=== PATIENT | male | born 1955 | race Caucasian/White ===

== ENCOUNTER → 2016-08-01 | Outpatient (CLI) | payer MEDICARE ==
--- NOTE | 2016-08-02 08:00 | XR ---
EXAMINATION TYPE: XR chest 2V DATE OF EXAM: 08/01/2016 1:40 PM COMPARISON: Chest x-ray January 12, 2009. HISTORY: Cough for 2 weeks. TECHNIQUE: Frontal and lateral views of the chest are obtained. FINDINGS: There is some hazy increased opacity left lower lung silhouetting portions of left heart b order worrisome for lingular atelectasis and/or infiltrate. Right lung is clear. No pleural effusion or pneumothorax is seen bilaterally. The cardiac silhouette size is within normal limits. The osseo us structures are intact. IMPRESSION: Possible developing lingular infiltrate and/or atelectasis.
== END | disposition home or self-care (01) ==
LOC: RADXRYALE 13:04
PROVIDERS: ATTEND Internal Medicine
DX: R05 Cough (principal)
CPT/HCPCS: 71020

== ENCOUNTER → 2018-05-29 | Outpatient (CLI) | payer MEDICARE ==
--- NOTE | 2018-05-29 15:26 | US ---
EXAMINATION TYPE: US venous doppler duplex LE BI DATE OF EXAM: 05/29/2018 3:06 PM COMPARISON: NONE CLINICAL HISTORY: R60.9 Edema. Prior left leg DVT years ago and placed on blood thinner since then; [facility] patient for left lateral malleolus ulcer that patient states is healing; HT5'6; WT 3 18lbs; bilateral ankle edema and dry skin. SIDE PERFORMED: Bilateral TECHNIQUE: The lower extremity deep venous system is examined utilizing real time linear array sonog tani with graded compression, doppler sonography and color-flow sonography. VESSELS IMAGED: Common Femoral Vein Deep Femoral Vein Greater Saphenous Vein * Femoral Vein Popliteal Vein Small Saphenous Vein * Proximal Calf Veins (* superficial vessels) Right Leg: Negative for DVT. Right groin lymph node = 3.9 x 2.3 x 1.3cm. Left Leg: Negative for DVT. Left Popliteal Fossa cyst seen = 7.7 x 2.7 x 3.4cm. Left groin lymph no kris seen with largest = 4.7 x 1.9 x 1.2cm. IMPRESSION: No evidence for DVT at this time.
== END | disposition home or self-care (01) ==
LOC: RADUSWWP 13:33
PROVIDERS: ATTEND Thoracic Surgery (Cardiothoracic Vascular Surgery)
DX: I87.2 Venous insufficiency (chronic) (peripheral) (principal); R60.9 Edema, unspecified
CPT/HCPCS: 93922; 93970

== ENCOUNTER → 2018-09-02 | Outpatient (CLI) | payer MEDICARE ==
--- NOTE | 2018-09-02 15:31 | CT ---
EXAMINATION TYPE: CT abdomen pelvis w con DATE OF EXAM: 09/02/2018 COMPARISON: None HISTORY: Generalized abdominal pain and nausea. CT DLP: 4168 mGycm CONTRAST: CT scan of the abdomen and pelvis is performed with Oral Contrast and with IV Contrast, patient injec jory with 100ml mL of Isovue 300. Streak artifact limits evaluation of portions of the right hemiabdom en. FINDINGS: LUNG BASES-: No visible nodule. No infiltrate. LIVER/GB: No calcified gallstones. There is evidence of hepatomegaly. No space occupying hepatic l esion. Biliary tree is of normal caliber. PANCREAS: No inflammation. No distinct mass. SPLEEN: Mild splenomegaly craniocaudal measurement 13.1 cm. No lesion seen. ADRENALS: Left adrenal nodule. No thickening. KIDNEYS/BLADDER: No hydronephrosis. No nephrolithiasis. No distinct renal mass. Urinary bladder g rossly unremarkable. BOWEL: Normal appendix. Normal bowel caliber. No inflammation. GENITAL ORGANS: No gross abnormality. LYMPH NODES: No greater than 1cm abdominal or pelvic lymph nodes are appreciated. AORTA: No significant abnormality. OSSEOUS STRUCTURES: No significant abnormality is seen. OTHER: No significant additional abnormality is seen. IMPRESSION: 1. Limited examination as noted. 2. Hepatosplenomegaly. 3. No acute inflammatory process appreciated.
== END | disposition home or self-care (01) ==
LOC: RADCTMAIN 12:30
PROVIDERS: ATTEND Internal Medicine
DX: R16.2 Hepatomegaly with splenomegaly, not elsewhere classified (principal)
CPT/HCPCS: 74177; Q9967

== ENCOUNTER → 2022-04-14 | Outpatient (CLI) | payer MEDICARE ==
--- NOTE | 2022-04-15 22:38 | US ---
EXAMINATION TYPE: US kidneys/renal and bladder DATE OF EXAM: 04/14/2022 COMPARISON: CT 2019 CLINICAL HISTORY: N13.30 bilateral hydronephrosis. Bilateral hydro EXAM MEASUREMENTS: Right Kidney: 12.2 x 6.0 x 6.0 cm Left Kidney: 12.8 x 6.6 x 6.6 cm Post Void Residual Volume: 1533 mL Right Kidney: Moderate hydro Left Kidney: Moderate hydro Bladder: [place] distended Bilateral Jets seen: No Normal Post Void Residual: No Incidental finding gallstones There is no evidence for hydronephrosis at this point in time. No nephrolithiasis is seen. No bridger s are identified. The urinary bladder is adequately distended. Bilateral ureteral jets are not seen . After voiding significant amount of residual urine remains present. IMPRESSION: New moderate to severe right greater than left hydronephrosis. Abnormal postvoid residual noted. Clinical correlation and follow-up advised.
== END | disposition home or self-care (01) ==
LOC: RADUSWWP 15:48
PROVIDERS: ATTEND Urology
DX: N13.30 Unspecified hydronephrosis (principal)
CPT/HCPCS: 76770

== ENCOUNTER 2024-10-16 16:44 | Emergency (ER) | payer MEDICARE ==
[2024-10-16 16:56] VITALS: RESP 20; TEMP 97.8
--- NOTE | 2024-10-16 17:26 | ED ---
Extremity Problem HPI - General Source: patient, EMS Mode of arrival: EMS Limitations: no limitations - History of Present Illness MD Complaint: extremity pain, extremity swelling <Dominga Talley - Last Filed: 10/16/24 21:20> <Juan F Khanna - Last Filed: 10/17/24 15:24> - General Chief complaint: Extremity Problem,Nontraumatic Stated complaint: leg infection Time Seen by Provider: 10/16/24 16:52 - History of Present Illness Initial comments: 69-year-old male with past medical history significant for diabetes, chronic venous stasis presenting to the ER with swelling and pain in the right knee. Patient reports he has had a complete knee reconstruction with hardware. Patient denies any fevers, chills, abdominal pain, chest pain, shortness of breath, urinary or bowel complaints. (Dominga Talley) - Related Data Home Medications Medication Instructions Recorded Confirmed Apixaban [Eliquis] 5 mg PO DAILY 05/21/18 09/03/18 Atorvastatin [Lipitor] 20 mg PO DAILY 05/21/18 09/03/18 Furosemide [Lasix] 40 mg PO DAILY 05/21/18 09/03/18 LORazepam [Ativan] 0.5 mg PO HS 05/21/18 09/03/18 Metoprolol Tartrate 25 mg PO DAILY 05/21/18 09/03/18 Potassium Chloride [Klor-Con 10] 10 meq PO DAILY 05/21/18 09/03/18 lisinopriL [Zestril] 5 mg PO QAM 05/21/18 09/03/18 metFORMIN HCL [Glucophage] 500 mg PO DAILY 05/21/18 09/03/18 Previous Rx's Medication Instructions Recorded Amoxic-Pot Clav 500-125 mg 1 tab PO Q12HR 10 Days #20 tab 10/16/24 [Augmentin 500-125 mg] Allergies Allergy/AdvReac Type Severity Reaction Status Date / Time No Known Allergies Allergy Verified 09/03/18 10:53 Review of Systems ROS Other: All systems not noted in ROS Statement are negative. Constitutional: Denies: fever, chills Respiratory: Denies: cough, dyspnea Cardiovascular: Denies: chest pain, palpitations Endocrine: Denies: fatigue Gastrointestinal: Denies: abdominal pain, nausea, vomiting Genitourinary: Denies: urgency, dysuria Musculoskeletal: Denies: back pain Neurological: Denies: headache, weakness <Dominga Talley - Last Filed: 10/16/24 21:20> ROS Other: All systems not noted in ROS Statement are negative. <Juan F Khanna - Last Filed: 10/17/24 15:24> ROS Statement: Those systems with pertinent positive or pertinent negative responses have been documented in the HPI. Past Medical History Past Medical History: Atrial Fibrillation, Heart Failure, Diabetes Mellitus, Hyperlipidemia, Hypertension, Sleep Apnea/CPAP/BIPAP, Vascular Disorder Additional Past Medical History / Comment(s): current wound left lower leg History of Any Multi-Drug Resistant Organisms: ESBL Date of last positivie culture/infection: 08/12/24 MDRO Source:: urine Past Surgical History: Joint Replacement, Orthopedic Surgery Additional Past Surgical History / Comment(s): shine knee replacements, ganglion cysts removed ankle, groin, neck, wrist Past Anesthesia/Blood Transfusion Reactions: Previous Problems w/ Anesthesia Additional Past Anesthesia/Blood Transfusion Reaction / Comment(s): states "had to be resuscitated" after ganglion cyst sx. states "I can't lay flat on back" Past Psychological History: Anxiety Past Alcohol Use History: Rare Past Drug Use History: Marijuana - Past Family History Sister(s) Family Medical History: Cancer Mother Family Medical History: COPD, Diabetes Mellitus Father Family Medical History: Coronary Artery Disease (CAD), Diabetes Mellitus <Dominga Talley - Last Filed: 10/16/24 21:20> General Exam Limitations: no limitations General appearance: alert, in no apparent distress Respiratory exam: Present: normal lung sounds bilaterally. Absent: respiratory distress, wheezes Cardiovascular Exam: Present: regular rate, normal rhythm GI/Abdominal exam: Present: soft. Absent: distended, tenderness Right Hip exam: Present: normal inspection, full ROM. Absent: tenderness, swelling Upper Leg exam: Present: normal inspection, full ROM. Absent: tenderness, swelling Knee exam: Present: full ROM, tenderness, swelling, erythema (30). Absent: crepitus Lower Leg exam: Present: full ROM. Absent: normal inspection (Venous stasis dermatitis bilaterally) Neurological exam: Present: alert, oriented X3 Psychiatric exam: Present: normal affect, normal mood <TalleyDominga - Last Filed: 10/16/24 21:20> Course Vital Signs 10/16/24 10/16/24 10/16/24 16:50 20:30 22:50 Temperature 97.8 F Pulse Rate 105 H 104 H 100 Respiratory 20 20 20 Rate Blood Pressure 112/60 104/64 108/62 O2 Sat by Pulse 97 90 L 91 L Oximetry Medical Decision Making - Lab Data Result diagrams: 10/16/24 18:19 10/16/24 18:19 <Dominga Talley - Last Filed: 10/16/24 21:20> - Lab Data Result diagrams: 10/16/24 18:19 10/16/24 18:19 <Juan F Khanna - Last Filed: 10/17/24 15:24> - Medical Decision Making Was pt. sent in by a medical professional or institution (ALEX Roblero, JAVASCRIPT APPLICATION DEVELOPER, urgent care, hospital, or [facility]...) When possible be specific @ -No Did you speak to anyone other than the patient for history (EMS, parent, family, police, friend...)? What history was obtained from this source @ -No Did you review nursing and triage notes (agree or disagree)? Why? @ -I reviewed and agree with nursing and triage notes Were old charts reviewed (outside hosp., previous admission, EMS record, old EKG, old radiological studies, urgent care reports/EKG's, [facility] records)? Report findings @ -No old charts were reviewed Differential Diagnosis? @ -Cellulitis, septic arthritis, gout, bursitis, this is not an all-inclusive list. EKG interpreted by me (3pts min.). @ -As above X-rays interpreted by me (1pt min.). @ -None done CT interpreted by me (1pt min.). @ -None done U/S interpreted by me (1pt. min.). @ -None done What testing was considered but not performed or refused? (CT, X-rays, U/S, labs)? Why? @ -None What meds were considered but not given or refused? Why? @ -None Did you discuss the management of the patient with other professionals (professionals i.e. , ALEX, JAVASCRIPT APPLICATION DEVELOPER, lab, RT, psych nurse, social media analyst, chemical plant manager, teacher, special weapons unit officer, immigration case worker)? Give summary @ -Case was discussed with ED attending Dr. Khanna. Was smoking cessation discussed for >3mins.? @ -No Was critical care preformed (if so, how long)? @ -No Were there social determinants of health that impacted care today? How? (Homelessness, low income, unemployed, alcoholism, drug addiction, transportation, low edu. Level, literacy, decrease access to med. care, [facility], rehab)? @ -No Was there de-escalation of care discussed even if they declined (Discuss DNR or withdrawal of care, Hospice)? DNR status @ -No What co-morbidities impacted this encounter? (DM, HTN, Smoking, COPD, CAD, Cancer, CVA, ARF, Chemo, Hep., AIDS, mental health diagnosis, sleep apnea, morbid obesity)? @ -DM, chronic venous stasis Was patient admitted / discharged? Hospital course, mention meds given and ro lauryn, prescriptions, significant lab abnormalities, going to OR and other pertinent info. @ -Labs showed minimal leukocytosis. Patient had elevated CRP. Glucose was somewhat elevated and patient received 10 units insulin. [facility] Patient will be discharged on antibiotics. Return precautions discussed. Undiagnosed new problem with uncertain prognosis? @ -No Drug Therapy requiring intensive monitoring for toxicity (Heparin, Nitro, Insulin, Cardizem)? @ -No Were any procedures done? @ -No Diagnosis/symptom? @ -Cellulitis of knee Acute, or Chronic, or Acute on Chronic? @ -Acute Uncomplicated (without systemic symptoms) or Complicated (systemic symptoms)? @ -Default Side effects of treatment? @ -No Exacerbation, Progression, or Severe Exacerbation? @ -No Poses a threat to life or bodily function? How? (Chest pain, [place], SD, pneumonia, PE, COPD, DKA, ARF, appy, cholecystitis, CVA, Diverticulitis, Homicidal, Suicidal, threat to staff... and all critical care pts) @ -No (Dominga Talley) I personally saw the patient and performed the critical portion of the service. I discussed the patient care with the resident, Dr. Tinajero. I directed management, care planning and final disposition of the patient. This includes, but not limited to, review of all lab work, radiological studies, EKG's, consultations, vital signs, and nursing notes. EKG interpreted by me (3pts min.) @ [as above] X-Rays interpreted by me (1 pt min.) @ [none] CT interpreted by me ( 1pt min.) @ [none] U/S interpreted by me (1 pt min.) @ [none] Critical care time of [0] minutes excluding separately billable procedures was spent in conjunction with critical care activities provided by the Resident and Attending simultaneously. I was present during [no procedures] for all critical portions of the procedure and as immediately available to furnish service during the entire procedure. (Juan F Khanna) - Lab Data Lab Results 10/16/24 10/16/24 10/16/24 Range/Units 18:19 18:19 20:35 WBC 12.62 H (4.50-10.00) 10*3/uL RBC 4.53 (4.40-5.60) 10*6/uL Hgb 11.9 L (13.0-17.0) g/dL Hct 39.6 (39.6-50.0) % MCV 87.4 (80.0-97.0) fL MCH 26.3 L (27.0-32.0) pg MCHC 30.1 L (32.0-37.0) g/dL Plt Count 189 (140-440) 10*3/uL MPV 9.3 L (9.5-12.2) fL Immature Gran % (Auto) 0.5 % Neutrophils % 90.7 % Lymphocytes % 4.3 % Monocytes % 4.0 % Eosinophils % 0.2 % Basophils % 0.3 % Immature Gran # 0.06 H (0.00-0.04) 10*3/uL Neutrophils # 11.45 H (1.80-7.70) 10*3/uL Lymphocytes # 0.54 L (0.90-5.00) 10*3/uL Monocytes # 0.50 (0.20-1.00) 10*3/uL Eosinophils # 0.03 L (0.04-0.35) 10*3/uL Basophils # 0.04 (0.00-0.10) 10*3/uL ESR 105 H (0-20) mm/Hr Sodium 134 L (137-145) mmol/L Potassium 4.5 (3.5-5.1) mmol/L Chloride 91 L (98-107) mmol/L Carbon Dioxide 34 H (22-30) mmol/L Anion Gap 9 mmol/L BUN 34 H (9-20) mg/dL Creatinine 1.22 (0.66-1.25) mg/dL Est GFR (CKD-EPI)AfAm 71 (>60 ml/min/1.73 sqM) Est GFR (CKD-EPI)NonAf 61 (>60 ml/min/1.73 sqM) Glucose 404 H (74-99) mg/dL POC Glucose (mg/dL) 306 H (70-110) mg/dL POC Glu [employer] Lieutenant ID jessie Shah Calcium 9.0 (8.4-10.2) mg/dL Total Bilirubin 0.5 (0.2-1.3) mg/dL AST 21 (17-59) U/L ALT 36 (4-49) U/L Alkaline Phosphatase 141 H (38-126) U/L C-Reactive Protein 11.4 H (<1.0) mg/dL Total Protein 5.7 L (6.3-8.2) g/dL Albumin 3.0 L (3.5-5.0) g/dL 04/24/25 Range/Units 22:08 WBC (4.50-10.00) 10*3/uL RBC (4.40-5.60) 10*6/uL Hgb (13.0-17.0) g/dL Hct (39.6-50.0) % MCV (80.0-97.0) fL MCH (27.0-32.0) pg MCHC (32.0-37.0) g/dL Plt Count (140-440) 10*3/uL MPV (9.5-12.2) fL Immature Gran % (Auto) % Neutrophils % % Lymphocytes % % Monocytes % % Eosinophils % % Basophils % % Immature Gran # (0.00-0.04) 10*3/uL Neutrophils # (1.80-7.70) 10*3/uL Lymphocytes # (0.90-5.00) 10*3/uL Monocytes # (0.20-1.00) 10*3/uL Eosinophils # (0.04-0.35) 10*3/uL Basophils # (0.00-0.10) 10*3/uL ESR (0-20) mm/Hr Sodium (137-145) mmol/L Potassium (3.5-5.1) mmol/L Chloride (98-107) mmol/L Carbon Dioxide (22-30) mmol/L Anion Gap mmol/L BUN (9-20) mg/dL Creatinine (0.66-1.25) mg/dL Est GFR (CKD-EPI)AfAm (>60 ml/min/1.73 sqM) Est GFR (CKD-EPI)NonAf (>60 ml/min/1.73 sqM) Glucose (74-99) mg/dL POC Glucose (mg/dL) 289 H (70-110) mg/dL POC Glu [employer] Lieutenant ID jessie Shah Calcium (8.4-10.2) mg/dL Total Bilirubin (0.2-1.3) mg/dL AST (17-59) U/L ALT (4-49) U/L Alkaline Phosphatase (38-126) U/L C-Reactive Protein (<1.0) mg/dL Total Protein (6.3-8.2) g/dL Albumin (3.5-5.0) g/dL Disposition Is patient prescribed a controlled substance at d/c from ED?: No Time of Disposition: 21:00 <Dominga Talley - Last Filed: 10/16/24 21:20> <Juan F Khanna - Last Filed: 10/17/24 15:24> Clinical Impression: Cellulitis Disposition: HOME SELF-CARE Condition: Fair Additional Instructions: Every disease is a spectrum and a small chance still exists that a serious condition could develop, for this reason, please monitor yourself closely for new, changing or worsening symptoms, symptoms that persist beyond 48 hours, any further episodes of vomiting blood, difficulty in breathing, severe abdominal pain, symptoms that did not improve in the next 48 hours, black or bloody stools, fever, inability to tolerate/keep down fluids or your medications, inability to follow up with outpatient providers as instructed and should you experience these symptoms or should you have any further concerns for your wellbeing please return to the ED or call 911 immediately. PLEASE take prescriptions as listed in discharge instructions. PLEASE call your primary care physician as soon as possible to arrange / discuss plan for followup appointment. Appointment in the next 1-3 days is strongly encouraged if possible. PLEASE let us know here before you leave if there is anything further we can do to be of any assistance. Take care and feel Better! Prescriptions: Amoxic-Pot Clav 500-125 mg [Augmentin 500-125 mg] 1 tab PO Q12HR 10 Days #20 tab Referrals: Rosales Mejias, [Primary Care Provider] - 1-2 days
[2024-10-16 18:33] LABS: Basophils # (A) 0.04 10*3/uL (0.00-0.10); Basophils % (A) 0.3 %; Eosinophils # (A) 0.03 10*3/uL (0.04-0.35); Eosinophils % (A) 0.2 %; HCT 39.6 % (39.6-50.0); HGB 11.9 g/dL (13.0-17.0); Lymphocytes # (A) 0.54 10*3/uL (0.90-5.00); Lymphocytes % (A) 4.3 %; MCH 26.3 pg (27.0-32.0); MCHC 30.1 g/dL (32.0-37.0); MCV 87.4 fL (80.0-97.0); Mean Platelet Volume 9.3 fL (9.5-12.2); Neutrophils # (A) 11.45 10*3/uL (1.80-7.70); Neutrophils % (A) 90.7 %; Platelet Count 189 10*3/uL (140-440); RBC 4.53 10*6/uL (4.40-5.60); WBC 12.62 10*3/uL (4.50-10.00)
[2024-10-16 18:47] LABS: ALT 36 U/L (4-49); AST 21 U/L (17-59); African American GFR (CKD) 71 (>60 ml/min/1.73 sqM); Alkaline Phosphatase 141 U/L (38-126); Anion Gap 9 mmol/L; Blood Urea Nitrogen 34 mg/dL (9-20); Carbon Dioxide 34 mmol/L (22-30); Chloride 91 mmol/L (98-107); Glucose 404 mg/dL (74-99); Non-African American GFR(CKD) 61 (>60 ml/min/1.73 sqM); Potassium 4.5 mmol/L (3.5-5.1); Sodium 134 mmol/L (137-145); Total Bilirubin 0.5 mg/dL (0.2-1.3); Total Protein 5.7 g/dL (6.3-8.2)
[2024-10-16 19:00] LABS: C Reactive Protein 11.4 mg/dL (<1.0)
[2024-10-16 20:36] LABS: Glucose,Whole Blood 306 mg/dL (70-110)
[2024-10-16] MEDS: INSULIN LISPRO (HumaLOG) 100 UNIT/ML 10 mL VL SQ ONE (20:40)
[2024-10-16] MEDS: HYDROcodone/APAP 5-325MG 1 EACH TAB PO STA (21:14)
[2024-10-16 22:10] LABS: Glucose,Whole Blood 289 mg/dL (70-110)
[2024-10-16 22:55] VITALS: BP 108/62; PULSE 100
[2024-10-17 02:27] LABS: Erythrocyte Sedimentation Rate 105 mm/Hr (0-20)
== END 2024-10-16 22:55 | disposition home or self-care (01) ==
LOC: EC 16:44
DX: L03.115 Cellulitis of right lower limb (principal)
CPT/HCPCS: 36415; 80053; 85025; 85652; 86140; 99283